=== PATIENT | male | born 1985 | race African-American/Black ===

== ENCOUNTER 2016-12-06 21:02 | Emergency (ER) | payer SELFPAY ==
[~2016-12-06] VITALS: Ht 180.3 cm; Wt 88.0 kg
[~2016-12-06 21:02] MED LIST: ACYC-1 PO; ALBU1AER INH; OMEP20TA39 PO
[2016-12-06 21:04] VITALS: BP 139/88; PULSE 95; RESP 16; TEMP 98.7; O2SAT 99
[2016-12-06] MEDS ORDERED: CARB6.5S5 EACH EAR (22:26)
--- NOTE | 2016-12-06 22:26 | PD ---
HPI Chief Complaint: ENT Complaint Time Seen by Provider: 22:01 Travel History International Travel<30 days: No Contact w/Intl Traveler<30days: No Traveled to known affect area: No History of Present Illness HPI Patient is a 31-year-old male comes in because he feels like his left ear is clog. He says it has been this way since Wednesday. He said he had some pain in his jaw, but now mostly just feels clog. He denies any congestion. He says he has been using some [id number] eardrops have not relieved his symptoms. He denies fever or chills. He denies any injury. PFSH Past Medical History Asthma: Yes Cardiovascular Problems: Yes (htn) Diminished Hearing: No Hypertension: Yes Respiratory: Yes (ASTHMA) Immunizations Current: Yes Past Surgical History Other Surgery: Yes (SKIN GRAFT LEFT LEG, ADENOIDECTOMY) Social History Alcohol Use: No Tobacco Use: Yes (1 PPD) Substance Use: No Allergies-Medications (Allergen,Severity, Reaction): Coded Allergies: Ranitidine (Verified Allergy, Mild, HIVES, 12/06/16) Reported Meds & Prescriptions Reported Meds & Active Scripts Active Debrox Otic Drops (Carbamide Peroxide Otic Drops) 6.5% Soln 5-10 Drop EACH EAR BID PRN up to 4 days. Zovirax 800 Mg Tab (Acyclovir) 800 Mg Tab 800 Mg PO 5 TIMES A DAY 7 Days Proair Hfa (Albuterol Sulfate) 8.5 Gm Aero 2 Puff INH Q4 * SHAKE WELL BEFORE USE * Hm Omeprazole (Omeprazole) 20 Mg Tab 40 Mg PO DAILY Review of Systems General / Constitutional: No: Fever, Chills Eyes: No: Redness, Tearing HENT: No: Sore Throat, Congestion Cardiovascular: No: Chest Pain or Discomfort Respiratory: No: Shortness of Breath Gastrointestinal: No: Nausea, Vomiting Musculoskeletal: No: Myalgias, Pain Skin: No Rash, No Change in Pigmentation Neurologic: No: Weakness, Dizziness Physical Exam Narrative GENERAL: Awake and alert, in no acute distress. SKIN: Focused skin assessment warm/dry. HEAD: Atraumatic. Normocephalic. EYES: Pupils equal and round. No scleral icterus. ENT: Mucous membranes pink and moist. Cerumen impaction on the left. No tonsillar swelling or exudates. No abscess of the gums or teeth. NECK: Trachea midline. No JVD. CARDIOVASCULAR: Regular rate and rhythm. No murmur appreciated. RESPIRATORY: No accessory muscle use. Clear to auscultation. Breath sounds equal bilaterally. MUSCULOSKELETAL: No obvious deformities. No clubbing. No cyanosis. No edema. NEUROLOGICAL: Awake and alert. No obvious cranial nerve deficits. Motor grossly within normal limits. Normal speech. Data Data Last Documented VS Vital Signs Date Time Temp Pulse Resp B/P Pulse Ox O2 Delivery O2 Flow Rate FiO2 12/06/16 21:04 98.7 95 16 139/88 99 Room Air MDM Medical Decision Making Medical Screen Exam Complete: Yes Emergency Medical Condition: Yes Differential Diagnosis Otitis media versus otitis externa versus cerumen impaction Narrative Course Patient is a 31-year-old male comes in complaining of a plugged ear. Exam shows cerumen impaction on the left. Ear wax removed, patient feels better. He will be discharged with a prescription for Debrox. Advised not to stick anything in his ears. Advised follow-up with a primary care doctor. Advised to return to the ED as needed for any worsening symptoms. Diagnosis Primary Impression: Cerumen impaction Qualified Code: H61.22 - Impacted cerumen of left ear Patient Instructions: Cerumen Impaction (ED), General Instructions Additional Instructions: Use the Debrox as needed for ear wax impaction. Follow-up with a primary care doctor. Return to the emergency department as needed for any worsening symptoms. Scripts Carbamide Peroxide Otic Drops (Debrox Otic Drops)6.5% Soln5-10 Drop EACH EAR BID PRN (Ear Wax Removal) #1 BOTTLE Ref 0 up to 4 days. Prov:Kenna Lott MD 12/06/16 Disposition: 01 DISCHARGE HOME Condition: Stable Kenna Lott MD Dec 06, 2016 22:26
== END 2016-12-06 23:11 | disposition home or self-care (01) ==
LOC: NEPD 21:02
DX: H61.22 Impacted cerumen, left ear (principal); I10 Essential (primary) hypertension; J45.909 Unspecified asthma, uncomplicated; F17.210 Nicotine dependence, cigarettes, uncomplicated
CPT/HCPCS: 69210